=== PATIENT | male | born 1955 | race Caucasian/White ===

== ENCOUNTER → 2023-08-21 06:26 | Day surgery (SDC) | payer OTHER, SELFPAY | LOC: GI 06:26 | PROVIDERS: ATTENDING PHYSICIAN Internal Medicine Gastroenterology | DX: D12.6 Benign neoplasm of colon, unspecified (principal); Z53.8 Procedure and treatment not carried out for other reasons | CPT/HCPCS: 45378; G0378 ==

== ENCOUNTER → 2023-08-22 06:35 | Day surgery (SDC) | payer OTHER, SELFPAY ==
[2023-08-22 10:48] LABS: Glucose - Point of Care 161 mg/dl (70-99)
== END ==
LOC: GI 06:35
PROVIDERS: ATTENDING PHYSICIAN Internal Medicine Gastroenterology
DX: Z12.11 Encounter for screening for malignant neoplasm of colon (principal); K57.30 Diverticulosis of large intestine without perforation or abscess without bleeding; Z86.010 Personal history of colon polyps; K64.0 First degree hemorrhoids; K63.5 Polyp of colon
CPT/HCPCS: 45380; 88305; 82962

== ENCOUNTER → 2023-08-28 07:12 | Outpatient (REF) | payer OTHER, SELFPAY | LOC: MRI 3T 07:12 | PROVIDERS: ATTENDING PHYSICIAN Specialist; FAMILY PHYSICIAN Nurse Practitioner | DX: R97.20 Elevated prostate specific antigen [PSA] (principal) | CPT/HCPCS: 72197; A9575 ==

== ENCOUNTER → 2024-03-20 07:05 | Outpatient (REF) | payer OTHER, SELFPAY | LOC: DHCBC/DCA 07:05 | PROVIDERS: ATTENDING PHYSICIAN Nurse Practitioner | DX: E11.9 Type 2 diabetes mellitus without complications (principal); R06.02 Shortness of breath | CPT/HCPCS: 78452; 93017; A9500; J2785 ==